=== PATIENT | female | born 1995 | race Asian ===

== ENCOUNTER 2020-12-24 08:54 | Outpatient (CLI) | payer OTHER ==
[2020-12-25 01:17] LABS: SARS-CoV-2 PCR by NAA Not Detected (NotDetected)
== END 2020-12-24 08:55 | disposition home or self-care (01) ==
LOC: CSHLAB 08:54
PROVIDERS: ATTEND Student in an Organized Health Care Education/Training Program
DX: Z20.822 Contact with and (suspected) exposure to COVID-19 (principal)
CPT/HCPCS: 87635; U0003; U0005

== ENCOUNTER 2020-12-27 19:00 | Inpatient (IN) | payer OTHER ==
[2020-12-27 19:54] VITALS: BMI 24.7
[2020-12-27] MEDS: Lactated Ringer's 1,000 ML IV SCH ×2 (20:00→21:18)
[2020-12-27] MEDS ORDERED: Ibuprofen 800 MG TAB PO PRN (20:44)
[2020-12-27] MEDS ORDERED: Methylergonovine 0.2 MG/ML VIAL IM PRN (20:44)
[2020-12-27] MEDS ORDERED: Acetaminophen 500 MG TAB PO PRN (20:44)
[2020-12-27] MEDS ORDERED: Butorphanol Tartrate 1 MG/ML VIAL SLOW IVP PRN (20:44)
[2020-12-27] MEDS ORDERED: Promethazine HCl 25 MG/ML VIAL IM PRN (20:44)
[2020-12-27] MEDS ORDERED: Ondansetron PF 4 MG/2 ML Vial IVP PRN (20:44)
[2020-12-27] MEDS ORDERED: Carboprost 250 MCG/ML AMP IM PRN (20:44)
[2020-12-27] MEDS ORDERED: Misoprostol 200 MCG TAB PR PRN (20:44)
[2020-12-27] MEDS ORDERED: Diphenoxylate HCl/Atropine Tablet PO PRN ×2 (20:44)
[2020-12-27] MEDS ORDERED: hydrALAZINE 20 MG/ML VIAL SLOW IVP PRN (20:44)
[2020-12-27] MEDS ORDERED: Lidocaine 1% (PF) 30 ML VIAL SC PRN (20:44)
[2020-12-27 21:22] LABS: Hemoglobin 11.2 g/dL (12.0-15.5); Mean Corpuscular Hemoglobin 30.1 pg (27.0-33.0); Mean Corpuscular Volume 91.1 fl (81.6-98.3); Mean Platelet Volume 9.3 fl (7.4-10.4); Platelet Count 264 10x3/uL (150-450); RBC Distribution Width 13.6 % (11.5-14.5); Red Blood Cell (RBC) Count 3.72 10x6/uL (3.90-5.03); White Blood Cell (WBC) Count 9.7 10x3/uL (3.5-10.5)
[2020-12-27] MEDS: Misoprostol 100 MCG TAB VAG SCH (21:39)
[2020-12-27 21:53] LABS: Hep B Surf Ag Non-Reactive S/CO (NonReactive); Syphilis Antibody Nonreactive (Nonreactive); Syphilis Antibody Index 0.02 S/CO (<1.00 Non-Reactive)
[2020-12-27 21:58] LABS: HBSAg Index 0.13 S/CO (0-0.99)
[2020-12-28] MEDS ORDERED: Fentanyl 4 mcg/Bup 0.1% Cadd 100 ML ONE ×2 (00:27→08:21)
[2020-12-28] MEDS ORDERED: Misoprostol 100 MCG TAB PO SCH (01:45)
[2020-12-28] MEDS: Lactated Ringer's 1,000 ML IV SCH (02:06)
[2020-12-28] MEDS ORDERED: Lactated Ringer's 1,000 ML IV SCH (05:15)
[2020-12-28] MEDS: NS w/ Oxytocin 30 units 500 ML IV PRN ×2 (07:50→10:53)
[2020-12-28] MEDS ORDERED: diphenhydrAMINE 50 MG/ML VIAL IVP PRN (08:36)
[2020-12-28] MEDS ORDERED: Promethazine HCl 25 MG/ML VIAL IM PRN (08:36)
[2020-12-28] MEDS ORDERED: Acetaminophen 325 MG TAB PO PRN (08:36)
[2020-12-28] MEDS ORDERED: Lactated Ringer's 500 ML IV PRN (08:36)
[2020-12-28] MEDS ORDERED: Naloxone HCl 0.4 mg/ml Vial IVP PRN ×2 (08:36)
[2020-12-28] MEDS ORDERED: ePHEDrine 50 MG/ML VIAL SLOW IVP PRN (08:36)
[2020-12-28] MEDS ORDERED: Eucerin (Mineral Oil/Petrolatum,White) 30 gm Jar TOP PRN (08:36)
[2020-12-28] MEDS ORDERED: Ondansetron PF 4 MG/2 ML Vial IVP PRN (08:36)
[2020-12-28] MEDS ORDERED: Communication Order-Pharmacy FS SCH (08:45)
[2020-12-28] MEDS ORDERED: Fentanyl 4 mcg/Bupivacaine 0.1% Cassette 100 ML EPIDURAL SCH (08:45)
[2020-12-28] MEDS ORDERED: HYDROcodone/Acetaminophen 5/325 mg Tablet PO SCH (11:15)
[2020-12-28] MEDS ORDERED: Bisacodyl 10 MG SUPP PR PRN (13:02)
[2020-12-28] MEDS ORDERED: Benzocaine-Menthol 82.5 ML CAN TOP PRN (13:02)
[2020-12-28] MEDS ORDERED: Lanolin Ointment 7 GM TUBE TOP PRN (13:02)
[2020-12-28] MEDS ORDERED: Milk Of Magnesia 30 ML UDCUP PO PRN (13:02)
[2020-12-28] MEDS ORDERED: NS / Oxytocin 40 units/1000ml 1,000 ML IV SCH (13:02)
[2020-12-28] MEDS ORDERED: diphenhydrAMINE 25 MG CAP PO PRN (13:02)
[2020-12-28] MEDS ORDERED: Preparation H Ointment 28 GM TUBE PR PRN (13:02)
[2020-12-28] MEDS: Dextrose 5%-Lactated Ringers 1,000 ML IV SCH ×2 (16:57→18:35)
[2020-12-28] MEDS: Ibuprofen 800 MG TAB PO SCH ×2 (16:58→20:37)
[2020-12-28] MEDS: Ferrous Sulfate 325 MG TAB PO SCH (17:02)
[2020-12-28] MEDS: Misoprostol 100 MCG TAB VAG SCH ×2 (17:02→17:03)
[2020-12-28] MEDS ORDERED: ePHEDrine Sulfate 50 MG/10 ML VIAL ONE (19:38)
[2020-12-28] MEDS ORDERED: Bupivacaine 0.25% HCL 30 ML VIAL ONE (19:38)
[2020-12-28] MEDS: Docusate Calcium (SURFAK) 240 MG CAP PO SCH (20:37)
[2020-12-29] MEDS: Dextrose 5%-Lactated Ringers 1,000 ML IV SCH ×3 (01:21→21:59)
[2020-12-29] MEDS: Ibuprofen 800 MG TAB PO SCH ×3 (05:10→21:00)
[2020-12-29] MEDS: Prenatal Vitamin 1 TAB PO SCH (08:11)
[2020-12-29] MEDS: Docusate Calcium (SURFAK) 240 MG CAP PO SCH ×2 (08:11→21:00)
[2020-12-29] MEDS: Ferrous Sulfate 325 MG TAB PO SCH ×2 (08:13→17:23)
[2020-12-29] MEDS: Bisacodyl 10 MG SUPP PR SCH ×2 (16:45→17:23)
[2020-12-30] MEDS: Bisacodyl 10 MG SUPP PR SCH ×2 (02:00→08:52)
[2020-12-30] MEDS: Ibuprofen 800 MG TAB PO SCH (05:36)
[2020-12-30] MEDS: Dextrose 5%-Lactated Ringers 1,000 ML IV SCH (06:48)
[2020-12-30] MEDS: Ferrous Sulfate 325 MG TAB PO SCH (08:50)
[2020-12-30] MEDS: Docusate Calcium (SURFAK) 240 MG CAP PO SCH (08:51)
[2020-12-30] MEDS: Prenatal Vitamin 1 TAB PO SCH (08:52)
[2020-12-30 09:28] VITALS: BP 90/52; TEMP 97.9
== END 2020-12-30 11:05 | disposition home or self-care (01) | DRG 768 ==
LOC: EEVIPCON 19:13 → CSHLD 19:13 → CSHPP 12-28 13:49
PROVIDERS: ADMIT Family Medicine; ATTEND Family Medicine
PROC: 3E0DXGC Introduction of Other Therapeutic Substance into Mouth and Pharynx, External Approach (ICD-10-PCS; 2020-12-27)
PROC: 10D07Z6 Extraction of Products of Conception, Vacuum, Via Natural or Artificial Opening (ICD-10-PCS; principal; 2020-12-28)
PROC: 0DQR0ZZ Repair Anal Sphincter, Open Approach (ICD-10-PCS; 2020-12-28)
DX: O75.81 Maternal exhaustion complicating labor and delivery (principal); Z37.0 Single live birth; Z3A.39 39 weeks gestation of pregnancy; Z20.822 Contact with and (suspected) exposure to COVID-19; O70.20 Third degree perineal laceration during delivery, unspecified; O72.1 Other immediate postpartum hemorrhage; Z81.8 Family history of other mental and behavioral disorders
CPT/HCPCS: 51702; 85027; 86780; 86850; 86900; 86901; 87340; J0595; J2001; J2210; J2590; S0020

== ENCOUNTER 2023-04-14 05:44 | Inpatient (IN) | payer OTHER ==
[2023-04-14 06:28] VITALS: BMI 23.0
[2023-04-14] MEDS ORDERED: Misoprostol 200 MCG TAB PR PRN (06:58)
[2023-04-14] MEDS ORDERED: Promethazine HCl 25 MG/ML VIAL IM PRN ×2 (06:58→22:23)
[2023-04-14] MEDS ORDERED: Diphenoxylate HCl/Atropine Tablet PO PRN (06:58)
[2023-04-14] MEDS ORDERED: Tranexamic Acid 1,000 MG/10 ML VIAL IVP PRN (06:58)
[2023-04-14] MEDS ORDERED: Carboprost 250 MCG/ML AMP IM PRN (06:58)
[2023-04-14] MEDS ORDERED: Ondansetron PF 4 MG/2 ML Vial IVP PRN ×2 (06:58→22:23)
[2023-04-14] MEDS ORDERED: Methylergonovine 0.2 MG/ML VIAL IM PRN (06:58)
[2023-04-14] MEDS ORDERED: Lidocaine 1% (PF) 30 ML VIAL SC PRN (06:58)
[2023-04-14] MEDS ORDERED: Ibuprofen 800 MG TAB PO PRN (06:58)
[2023-04-14] MEDS ORDERED: hydrALAZINE 20 MG/ML VIAL SLOW IVP PRN (06:58)
[2023-04-14] MEDS ORDERED: NS w/ Oxytocin 30 units 500 ML IV SCH ×2 (07:00)
[2023-04-14 07:47] LABS: Hematocrit 34.6 % (34.9-44.5); Hemoglobin 11.6 g/dL (12.0-15.5); Mean Corpuscular HGB CONC 33.5 g/dL (32.0-36.0); Mean Corpuscular Hemoglobin 30.5 pg (27.0-33.0); Mean Corpuscular Volume 91.1 fl (81.6-98.3); Mean Platelet Volume 9.1 fl (7.4-10.4); Platelet Count 221 10x3/uL (150-450); RBC Distribution Width 12.7 % (11.5-14.5); White Blood Cell (WBC) Count 6.9 10x3/uL (3.5-10.5)
[2023-04-14 08:15] LABS: HBSAg Index 0.16 S/CO (0-0.99); Hep B Surf Ag - L&D Non-Reactive S/CO (NonReactive); Syphilis Antibody Nonreactive (Nonreactive); Syphilis Antibody Index 0.02 S/CO (<1.00 Non-Reactive)
[2023-04-14] MEDS ORDERED: Misoprostol 100 MCG TAB PO SCH ×2 (09:17→15:00)
[2023-04-14] MEDS ORDERED: fentaNYL 50 mcg/mL 1 mL Vial SLOW IVP PRN (09:37)
[2023-04-14] MEDS ORDERED: Bupivacaine 0.25% HCL 30 ML VIAL ONE (17:00)
[2023-04-14] MEDS ORDERED: fentaNYL/Ropivacaine Epidural 100 ML ONE (21:54)
[2023-04-14] MEDS ORDERED: ePHEDrine Sulfate 50 MG/10 ML VIAL SLOW IVP PRN (22:23)
[2023-04-14] MEDS ORDERED: Moisturizing Cream (Eucerin) 113 GM JAR TOP PRN (22:23)
[2023-04-14] MEDS ORDERED: Lactated Ringer's 500 ML IV PRN (22:23)
[2023-04-14] MEDS ORDERED: diphenhydrAMINE 50 MG/ML VIAL IVP PRN (22:23)
[2023-04-14] MEDS ORDERED: Naloxone HCl 0.4 mg/ml Vial IVP PRN ×2 (22:23)
[2023-04-14] MEDS ORDERED: Communication Order-Pharmacy FS SCH (22:30)
[2023-04-14] MEDS ORDERED: fentaNYL 2 mcg/Ropivacaine 0.2% Epidural 100 ML CADD EPIDURAL SCH (22:30)
[2023-04-15] MEDS ORDERED: Milk Of Magnesia 30 ML UDCUP PO PRN (02:41)
[2023-04-15] MEDS ORDERED: Bisacodyl 10 MG SUPP PR PRN (02:41)
[2023-04-15] MEDS ORDERED: Boostrix 0.5 ML (Tdap) VIAL (>/=7 yrs of age) IM ONE (02:41)
[2023-04-15] MEDS: Lactated Ringer's 1,000 ML IV SCH ×2 (02:42→02:43)
[2023-04-15] MEDS: Docusate 100 MG CAP PO SCH ×2 (20:29→20:30)
[2023-04-15] MEDS: Acetaminophen 325 MG TAB PO PRN (20:29)
[2023-04-15] MEDS: Ferrous Sulfate 325 MG TAB PO SCH (20:30)
[2023-04-16] MEDS: Acetaminophen 325 MG TAB PO PRN ×3 (05:15→19:38)
[2023-04-16] MEDS: Docusate 100 MG CAP PO SCH ×2 (12:42→21:52)
[2023-04-16] MEDS: Ferrous Sulfate 325 MG TAB PO SCH (21:52)
[2023-04-16] MEDS: Ibuprofen 800 MG TAB PO PRN (21:52)
[2023-04-17] MEDS: Ibuprofen 800 MG TAB PO PRN (05:46)
[2023-04-17 07:59] VITALS: BP 90/50; TEMP 98.2
[2023-04-17] MEDS: Ferrous Sulfate 325 MG TAB PO SCH (08:48)
[2023-04-17] MEDS: Docusate 100 MG CAP PO SCH (08:49)
== END 2023-04-17 12:50 | disposition home or self-care (01) | DRG 807 ==
LOC: CSHLD 05:44 → CSHPP 04-15 13:20
PROVIDERS: ADMIT Family Medicine; ATTEND Family Medicine
PROC: 3E0P7VZ Introduction of Hormone into Female Reproductive, Via Natural or Artificial Opening (ICD-10-PCS; 2023-04-14)
PROC: 10907ZC Drainage of Amniotic Fluid, Therapeutic from Products of Conception, Via Natural or Artificial Opening (ICD-10-PCS; 2023-04-14)
PROC: 10E0XZZ Delivery of Products of Conception, External Approach (ICD-10-PCS; principal; 2023-04-15)
PROC: 0HQ9XZZ Repair Perineum Skin, External Approach (ICD-10-PCS; 2023-04-15)
DX: O99.892 Other specified diseases and conditions complicating childbirth (principal); Z37.0 Single live birth; Z3A.39 39 weeks gestation of pregnancy; O70.0 First degree perineal laceration during delivery; N85.8 Other specified noninflammatory disorders of uterus; K76.89 Other specified diseases of liver; O99.62 Diseases of the digestive system complicating childbirth
CPT/HCPCS: 36415; 51702; 85027; 86780; 86850; 86900; 86901; 87340; J2590; J3010; S0020